=== PATIENT | male | born 1965 | race Caucasian/White ===

== ENCOUNTER 2017-03-18 18:30 | Emergency (ER) | payer OTHER ==
[~2017-03-18] VITALS: Ht 182.8 cm; Wt 74.8 kg
[~2017-03-18 18:30] MED LIST: AUGMENTIN 875 M1 TAB PO; TRAMADOL HCL50 MG PO
[2017-03-18 18:49] VITALS: BP 132/60
[2017-03-18] MEDS ORDERED: Motrin,Rufen800 MG PO (19:19)
[2017-03-18] MEDS ORDERED: FLONASE ALLERG9.9 ML NAS (19:19)
[2017-03-18] MEDS ORDERED: AUGMENTIN 875875 MG PO (19:19)
== END 2017-03-18 19:02 | disposition home or self-care (01) ==
LOC: ED 18:30
DX: J01.10 Acute frontal sinusitis, unspecified (principal); R51 Headache

== ENCOUNTER 2017-10-23 11:37 | Emergency (ER) | payer OTHER ==
[~2017-10-23] VITALS: Ht 182.8 cm; Wt 79.4 kg
[~2017-10-23 11:37] MED LIST changes: +AUGMENTIN 875875 MG PO; +FLONASE ALLERG9.9 ML NAS; +Motrin,Rufen800 MG PO
[2017-10-23 11:41] VITALS: BP 143/87
[2017-10-23] MEDS ORDERED: NAPROSYN500 MG PO (11:56)
[2017-10-23] MEDS ORDERED: KEFLEX500 M1 PO (11:56)
== END 2017-10-23 12:11 | disposition home or self-care (01) ==
LOC: ED 11:37
DX: S61.431A Puncture wound without foreign body of right hand, initial encounter (principal); R03.0 Elevated blood-pressure reading, without diagnosis of hypertension; Z23 Encounter for immunization; Z91.040 Latex allergy status; W22.8XXA Striking against or struck by other objects, initial encounter; Y93.89 Activity, other specified; Y92.89 Other specified places as the place of occurrence of the external cause; Y99.8 Other external cause status

== ENCOUNTER 2022-06-15 15:20 | Emergency (ER) | payer OTHER ==
[~2022-06-15] VITALS: Ht 180.3 cm; Wt 88.5 kg
[~2022-06-15 15:20] MED LIST changes: +KEFLEX500 M1 PO; +NAPROSYN500 MG PO
[2022-06-15 17:17] LABS: BASO % 0.4 % (0.0-1.0); HEMATOCRIT 46.8 % (42.0-52.0); LYMPH # 0.3 10*3/uL (1.3-4.4); LYMPH % 6.2 % (27.0-41.0); MEAN CELL VOLUME 93.2 fl (80.0-94.0); MEAN CORPUSCULAR HGB 32.1 pg (27.0-31.0); MEAN CORPUSCULAR HGB CONC 34.4 g/dl (33.0-37.0); MEAN PLATELET VOLUME 9.1 fl (9.6-12.3); MONO # 0.4 10*3/uL (0.1-1.0); NEUT # 4.4 10*3/uL (2.3-7.9); NEUT % 84.6 % (47.0-73.0); PLATELET COUNT AUTOMATED 153 10*3/uL (130-400); RED BLOOD COUNT 5.02 10*6/uL (4.50-5.90); RED CELL DISTRI WIDTH 12.3 % (0-14.5); WHITE BLOOD COUNT 5.1 10*3/uL (4.8-10.8)
[2022-06-15 17:37] LABS: ALKALINE PHOSPHATASE 63 U/L (46-116); BUN 11 mg/dl (9-23); CHLORIDE 100 mmol/L (98-107); SGPT/ALT 15 U/L (10-49); TOTAL PROTEIN 7.4 gm/dL (6.0-8.0)
[2022-06-15 20:05] VITALS: BP 140/74
[2022-06-15] MEDS ORDERED: PROVENTIL HFA6.7 GM INH (20:42)
[2022-06-15] MEDS ORDERED: VIBRAMYCIN100 MG PO (20:42)
== END 2022-06-15 20:58 | disposition home or self-care (01) ==
LOC: ED 15:20
PROVIDERS: Nurse Practitioner Family
DX: J06.9 Acute upper respiratory infection, unspecified (principal); Z98.890 Other specified postprocedural states; Z20.822 Contact with and (suspected) exposure to COVID-19

== ENCOUNTER 2024-06-13 12:37 | Emergency (ER) | payer OTHER ==
[~2024-06-13] VITALS: Ht 182.8 cm; Wt 84.0 kg
[~2024-06-13 12:37] MED LIST changes: +PROVENTIL HFA6.7 GM INH; +VIBRAMYCIN100 MG PO
[2024-06-13 12:46] VITALS: BP 157/94
[2024-06-13] MEDS ORDERED: ACETAMINOPHEN 325 MG TAB PO ONE (13:10)
[2024-06-13] MEDS ORDERED: Acetaminophen/Hydrocodone 5 MG/325 MG TABLET PO ONE (13:55)
== END 2024-06-13 15:28 | disposition home or self-care (01) ==
LOC: ED 12:37
DX: S20.212A Contusion of left front wall of thorax, initial encounter (principal); S00.83XA Contusion of other part of head, initial encounter; W18.39XA Other fall on same level, initial encounter; Y93.89 Activity, other specified; Y92.59 Other trade areas as the place of occurrence of the external cause; Y99.8 Other external cause status